=== PATIENT | female | born 1975 | race Caucasian/White ===

== ENCOUNTER 2019-03-04 14:26 | Emergency (ER) | payer OTHER ==
[~2019-03-04] VITALS: Ht 162.6 cm; Wt 113.4 kg
[2019-03-04] MEDS ORDERED: LEXAPRO 10 MG T10 MG PO (14:42)
[2019-03-04 14:56] LABS: URINE BILIRUBIN NEGATIVE (Negative); URINE BLOOD NEGATIVE (Negative); URINE CLARITY CLEAR; URINE COLOR YELLOW; URINE GLUCOSE-RANDOM NEGATIVE (Negative); URINE KETONES NEGATIVE (Negative); URINE LEUKOCYTES-REFLEX NEGATIVE (Negative); URINE NITRITE-REFLEX NEGATIVE (Negative); URINE PROTEIN NEGATIVE (Negative); URINE UROBILINOGEN 0.2 E.U./dl (0.2-1.0)
[2019-03-04 15:23] LABS: ABSOLUTE EOSINOPHILS 0.1 thou/uL (0.0-0.7); ABSOLUTE LYMPHOCYTES 1.4 thou/uL (0.8-5.3); ABSOLUTE MONOCYTES 0.4 thou/uL (0.0-1.2); ABSOLUTE NEUTROPHILS 4.1 thou/uL (1.6-8.1); BASOPHILS 0.2 %; EOSINOPHILS 1.6 %; HEMATOCRIT 38.9 % (37.0-47.0); HEMOGLOBIN 13.2 gm/dL (12.0-15.0); LYMPHOCYTES 23.2 %; MCH 28.5 pg (26.0-34.0); MCHC 33.8 g/dL (28.0-37.0); MCV 84.3 fL (80.0-100.0); MPV 8.9 fl. (7.2-11.1); NUCLEATED RBCS 0 /100WBC; PLATELET COUNT* 234 thou/uL (150-400); RBC 4.62 mil/uL (4.20-5.00); RDW-CV 12.9 % (10.5-14.5)
[2019-03-04 15:31] LABS: POTASSIUM 3.7 mmol/L (3.5-5.1)
[2019-03-04 15:36] LABS: ALBUMIN 3.9 g/dL (3.4-5.0); TOTAL BILIRUBIN 0.4 mg/dL (<0.1-1.0); TOTAL PROTEIN 7.5 g/dL (6.4-8.2)
[2019-03-04] MEDS ORDERED: CIPRO500 MG PO (16:34)
[2019-03-04] MEDS ORDERED: NORCO 5-325 TA1 EAC1 PO (16:34)
[2019-03-04] MEDS ORDERED: FLAGYL500 M1 PO (16:34)
[2019-03-04 17:07] VITALS: BP 165/85
== END 2019-03-04 17:07 | disposition home or self-care (01) ==
LOC: M.ERS 14:26
PROVIDERS: Physician Assistant
DX: R10.31 Right lower quadrant pain (principal); F41.9 Anxiety disorder, unspecified

== ENCOUNTER 2019-08-14 11:54 | Emergency (ER) | payer OTHER ==
[~2019-08-14] VITALS: Ht 162.6 cm; Wt 117.9 kg
[~2019-08-14 11:54] MED LIST: CIPRO500 MG PO; FLAGYL500 M1 PO; LEXAPRO 10 MG T10 MG PO; NORCO 5-325 TA1 EAC1 PO
[2019-08-14] MEDS ORDERED: WELLBUTRIN 100100 MG PO (12:01)
[2019-08-14 12:28] LABS: ABSOLUTE EOSINOPHILS 0.1 thou/uL (0.0-0.7); ABSOLUTE MONOCYTES 0.2 thou/uL (0.0-1.2); ABSOLUTE NEUTROPHILS 2.8 thou/uL (1.6-8.1); BASOPHILS 0.6 %; EOSINOPHILS 2.4 %; HEMATOCRIT 37.5 % (37.0-47.0); HEMOGLOBIN 12.3 gm/dL (12.0-15.0); LYMPHOCYTES 24.9 %; MCH 26.1 pg (26.0-34.0); MCHC 32.9 g/dL (28.0-37.0); MCV 79.2 fL (80.0-100.0); MONOCYTES 5.6 %; MPV 9.2 fl. (7.2-11.1); NUCLEATED RBCS 0 /100WBC; PLATELET COUNT* 247 thou/uL (150-400); POLYS 66.5 %; RBC 4.73 mil/uL (4.20-5.00); WBC 4.2 thou/uL (4.0-11.0)
[2019-08-14 12:44] LABS: CALCIUM 8.5 mg/dL (8.5-10.1); CREATININE 0.9 mg/dL (0.6-1.3); POTASSIUM 3.8 mmol/L (3.5-5.1)
[2019-08-14 12:47] LABS: ALBUMIN 3.6 g/dL (3.4-5.0); MAGNESIUM 1.8 mg/dL (1.8-2.4); TOTAL BILIRUBIN 0.2 mg/dL (<0.1-1.0); TOTAL PROTEIN 7.3 g/dL (6.4-8.2)
[2019-08-14] MEDS ORDERED: ATIVAN0.5 M1 PO (15:39)
[2019-08-14 16:02] VITALS: BP 159/74
--- NOTE | 2019-08-20 13:55 | EKG ---
[place] [address] ELECTROCARDIOGRAM REPORT Name: PINKY NELSON Room: [facility]#: [id number] Admission: 08/14/19 Attend Phys: Discharge: 08/14/19 Date of : 71 Date of Service: 08/14/19 [facility] Report #: [id number] THIS REPORT FOR: cc: MARSHALL BERNSTEIN NP, KATHERINE J. NP Biggs, F. 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[place] : 1975 Requested By: Prakash Chambers Order Number: [id number] MD: Chino Aponte Measurements Intervals [place] Rate: 71 P: 45 AK: 172 QRS: 26 QRSD: 94 T: 29 QT: 394 QTc: 429 Interpretive Statements Sinus rhythm Baseline wander in lead(s) V1,V5,V6 No previous ECG available for comparison Electronically Signed On 08-14-2019 14:33:39 [employer] by Chino Aponte [email or web address] <ELECTRONICALLY SIGNED> By: Raul Aponte MD, [facility] 08/14/19 1433 1200 1200 Raul Aponte MD, [facility] /EPI
--- NOTE | 2019-08-20 13:55 | EKG ---
[place] [address] ELECTROCARDIOGRAM REPORT Name: PINKY NELSON Room: [facility]#: [id number] Admission: 08/14/19 Attend Phys: Discharge: 08/14/19 Date of : 71 Date of Service: 08/14/19 1530 Report #: [id number] THIS REPORT FOR: cc: MARSHALL BERNSTEIN NP, KATHERINE J. NP Blick, David R. 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
== END 2019-08-14 16:03 | disposition home or self-care (01) ==
LOC: M.ERS 11:54
PROVIDERS: Emergency Medicine Emergency Medical Services
DX: I21.9 Acute myocardial infarction, unspecified (principal); F41.9 Anxiety disorder, unspecified; I26.99 Other pulmonary embolism without acute cor pulmonale; Z98.890 Other specified postprocedural states

== ENCOUNTER 2021-05-30 11:29 | Emergency (ER) | payer OTHER ==
[~2021-05-30] VITALS: Ht 162.6 cm; Wt 136.1 kg
[~2021-05-30 11:29] MED LIST changes: +ATIVAN0.5 M1 PO; +WELLBUTRIN 100100 MG PO
[2021-05-30] MEDS ORDERED: METFORMIN HCL500 M3 PO (11:38)
--- NOTE | 2021-05-30 12:37 | EKG ---
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
[2021-05-30 13:01] LABS: ABSOLUTE EOSINOPHILS 0.1 thou/uL (0.0-0.7); ABSOLUTE LYMPHOCYTES 1.2 thou/uL (0.8-5.3); ABSOLUTE MONOCYTES 0.3 thou/uL (0.0-1.2); ABSOLUTE NEUTROPHILS 3.3 thou/uL (1.6-8.1); BASOPHILS 0.4 %; EOSINOPHILS 2.4 %; HEMATOCRIT 43.2 % (37.0-47.0); HEMOGLOBIN 14.6 gm/dL (12.0-15.0); LYMPHOCYTES 24.6 %; MCH 28.6 pg (26.0-34.0); MCHC 33.9 g/dL (28.0-37.0); MCV 84.4 fL (80.0-100.0); MONOCYTES 5.8 %; MPV 8.7 fl. (7.2-11.1); NUCLEATED RBCS 0 /100WBC; PLATELET COUNT* 252 thou/uL (150-400); POLYS 66.8 %; RBC 5.11 mil/uL (4.20-5.00); RDW-CV 13.4 % (10.5-14.5)
[2021-05-30 13:10] LABS: CALCIUM 9.5 mg/dL (8.5-10.1); CREATININE 0.8 mg/dL (0.6-1.3); POTASSIUM 4.5 mmol/L (3.5-5.1)
[2021-05-30 13:15] LABS: ALBUMIN 4.1 g/dL (3.4-5.0); TOTAL BILIRUBIN 0.6 mg/dL (<0.1-1.0); TOTAL PROTEIN 7.9 g/dL (6.4-8.2)
[2021-05-30] MEDS ORDERED: THALITONE15 MG PO (14:58)
[2021-05-30 15:57] VITALS: BP 154/72
== END 2021-05-30 15:57 | disposition home or self-care (01) ==
LOC: M.ERS 11:29
PROVIDERS: Emergency Medicine
DX: I10 Essential (primary) hypertension (principal); R07.89 Other chest pain; F41.9 Anxiety disorder, unspecified; Z98.890 Other specified postprocedural states; Z79.899 Other long term (current) drug therapy